=== PATIENT | male | born 1945 | race Caucasian/White ===

== ENCOUNTER 2017-05-31 10:27 | Inpatient (IN) | payer MEDICARE, MEDICAID ==
[~2017-05-31] VITALS: Ht 180.3 cm; Wt 88.4 kg
[~2017-05-31 10:27] MED LIST: AMLO5TAB2 PO; ASPI81CH43; BENA40TA7 PO; CITA-36 PO; GLIP1TAB38 PO; METF-372 PO; RANI150C11 PO; SIMV-8; TRAZ50TA2 PO
[2017-05-31 11:12] LABS: Basophils # (auto) 0 uL; Basophils % (auto) 0.5 % (0.0-2.0); Eosinophils # (auto) 0.2 uL; Eosinophils % (auto) 2.5 % (0.0-7.0); Hematocrit 35.6 % (41.0-53.0); Hemoglobin 11.5 g/dL (13.5-17.5); Lymphocytes # (auto) 0.7 uL; Lymphocytes % (auto) 10.4 % (10.0-50.0); Mean Corpuscular Hemoglobin 28.8 pg (28.0-32.0); Mean Corpuscular Hgb Conc. 32.4 g/dL (32.0-36.0); Mean Corpuscular Volume 88.9 fL (80.0-100.0); Mean Platelet Volume 6.9 fL (6.9-10.8); Monocytes # (auto) 0.5 uL; Monocytes % (auto) 6.7 % (0.0-12.0); Neutrophils # (auto) 5.7 uL; Neutrophils % (auto) 79.9 % (37.0-80.0); Nucleated Red Blood Cells % 0.2 %; Platelet Count (auto) 136 10^3/uL (140-450); Red Cell Distribution Width 17.9 % (11.8-14.3); White Blood Cell 7.2 10^3/uL (4.4-10.8)
[2017-05-31 11:35] LABS: Albumin 3.8 g/dL (3.4-5.0); Alkaline Phosphatase 103 U/L (45-117); Anion Gap 5 (5-15); Aspartate Aminotransferase 18 U/L (15-37); BUN/Creatinine Ratio 27.4; Bilirubin, Total 0.9 mg/dL (0.2-1.0); Blood Urea Nitrogen 29 mg/dL (7-18); Calcium 7.9 mg/dL (8.5-10.1); Carbon Dioxide 33 mmol/L (21-32); Chloride 102 mmol/L (98-107); GFR African American 89 mL/min; GFR Non-African American 73 mL/min; Glucose 179 mg/dL (74-106); Magnesium 2.6 mg/dL (1.6-2.6); Potassium 4.5 mmol/L (3.5-5.1); Sodium 140 mmol/L (136-145); Total Protein 7.5 g/dL (6.4-8.2)
[2017-05-31] MEDS ORDERED: FUROSEMIDE 40 MG/4 ML VIAL IV ONE (12:45)
[2017-05-31] MEDS ORDERED: MORPHINE SULF INJ 2 MG/ML SYRINGE 1ML IV PRN ×2 (14:45)
[2017-05-31] MEDS ORDERED: ONDANSETRON HCL 4 MG/2 ML VIAL IV PRN (14:45)
[2017-05-31] MEDS ORDERED: DOCUSATE SOD 100 MG CAP PO PRN (14:45)
[2017-05-31] MEDS ORDERED: NITROGLYCERIN 0.4 MG SL TAB SL PRN (14:45)
[2017-05-31] MEDS ORDERED: ACETAMINOPHEN 325 MG TAB PO PRN (14:45)
[2017-05-31] MEDS ORDERED: TEMAZEPAM 15 MG CAP PO PRN (14:45)
[2017-05-31] MEDS ORDERED: POTASSIUM CHL 10 Meq TABLET PO ONE (14:45)
[2017-05-31] MEDS ORDERED: DEXTROSE (50%) 50ML SYRG IV PRN (15:00)
[2017-05-31 16:08] LABS: INR 1.97 (0.9-1.15); Partial Thromboplastin Time 29.5 sec (22.64-33.71); Prothrombin Time 21.6 sec (9.37-12.3)
[2017-05-31 16:17] LABS: B-Type Natriuretic Peptide 242.85 pg/mL (0-100)
[2017-05-31] MEDS ORDERED: WARFARIN SODIUM 5 MG TAB PO ONE (17:00)
[2017-05-31 17:04] LABS: Temperature: 23.1 C (20.0-25.0)
[2017-05-31] MEDS: InsuLIN REG 1unit/0.01ml Soln (100units/ml) SC SCH ×2 (17:19→21:40)
[2017-05-31] MEDS: ACCU-CHEK COMFORT CURVE STRIP VI SCH ×2 (17:19→21:39)
[2017-05-31] MEDS: FUROSEMIDE 40 MG/4 ML VIAL IV SCH (17:19)
[2017-05-31] MEDS: ALBUTEROL SULF 2.5 MG/0.5ML(0.5%) NEB SOLN NEB SCH (18:22)
[2017-05-31] MEDS: glipiZIDE 5 MG TAB PO SCH (18:30)
[2017-05-31] MEDS: SODIUM CHLOR 0.9% PF (SALINE LOCK) 10ML VIAL IV SCH (21:49)
[2017-05-31] MEDS: BENAZEPRIL HCL 10 MG TAB PO SCH (21:52)
[2017-05-31] MEDS: ATORVASTATIN 20 MG TAB PO SCH (21:52)
[2017-05-31] MEDS: POTASSIUM CHL 10 Meq TABLET PO SCH (21:52)
[2017-05-31] MEDS: traZODone HCL 50 MG TAB PO SCH (21:52)
[2017-05-31 23:00] VITALS: BP 130/87
[2017-06-01] VITALS (12 sets, daily range): BP systolic 114–132; BP diastolic 69–102
[2017-06-01] MEDS: ALBUTEROL SULF 2.5 MG/0.5ML(0.5%) NEB SOLN NEB SCH ×4 (00:50→18:52)
[2017-06-01 03:31] LABS: Urine Bilirubin Negative (Negative); Urine Blood Negative /uL (Negative); Urine Color Yellow (Yellow); Urine Glucose Normal (Normal); Urine Ketone Negative (Negative); Urine Nitrite Negative (Negative); Urine RBC <1 /hpf (0 - 3); Urine Squamous Epithelial Cell FEW /hpf (<5); Urine pH 7.5 (5.0-8.0)
[2017-06-01 05:49] LABS: Basophils # (auto) 0.1 uL; Basophils % (auto) 0.7 % (0.0-2.0); Eosinophils # (auto) 0.2 uL; Eosinophils % (auto) 2.7 % (0.0-7.0); Hematocrit 33.7 % (41.0-53.0); Hemoglobin 11.1 g/dL (13.5-17.5); Lymphocytes # (auto) 0.7 uL; Lymphocytes % (auto) 7.9 % (10.0-50.0); Mean Corpuscular Hemoglobin 28.8 pg (28.0-32.0); Mean Corpuscular Volume 87.2 fL (80.0-100.0); Mean Platelet Volume 6.9 fL (6.9-10.8); Monocytes # (auto) 0.7 uL; Monocytes % (auto) 7.4 % (0.0-12.0); Neutrophils # (auto) 7.2 uL; Neutrophils % (auto) 81.3 % (37.0-80.0); Nucleated Red Blood Cells % 0.2 %; Platelet Count (auto) 129 10^3/uL (140-450); Red Cell Distribution Width 17.5 % (11.8-14.3); White Blood Cell 8.8 10^3/uL (4.4-10.8)
[2017-06-01 06:03] LABS: INR 1.95 (0.9-1.15); Partial Thromboplastin Time 32.5 sec (22.64-33.71); Prothrombin Time 21.4 sec (9.37-12.3)
[2017-06-01] MEDS: InsuLIN REG 1unit/0.01ml Soln (100units/ml) SC SCH ×4 (06:20→22:00)
[2017-06-01] MEDS: ACCU-CHEK COMFORT CURVE STRIP VI SCH ×4 (06:20→22:42)
[2017-06-01 06:23] LABS: Chloride 100 mmol/L (98-107); Glucose 58 mg/dL (74-106); Potassium 3.9 mmol/L (3.5-5.1); Sodium 140 mmol/L (136-145)
[2017-06-01] MEDS: SODIUM CHLOR 0.9% PF (SALINE LOCK) 10ML VIAL IV SCH ×3 (06:24→22:40)
[2017-06-01] MEDS: glipiZIDE 5 MG TAB PO SCH ×2 (06:30→18:00)
[2017-06-01] MEDS: FUROSEMIDE 40 MG/4 ML VIAL IV SCH ×2 (06:30→18:37)
[2017-06-01 06:32] LABS: Albumin 3.5 g/dL (3.4-5.0); Anion Gap 8 (5-15); Aspartate Aminotransferase 15 U/L (15-37); BUN/Creatinine Ratio 26.7; Blood Urea Nitrogen 23 mg/dL (7-18); Carbon Dioxide 32 mmol/L (21-32); GFR African American 113 mL/min; GFR Non-African American 93 mL/min
[2017-06-01 06:37] LABS: Alkaline Phosphatase 92 U/L (45-117); Bilirubin, Total 1.3 mg/dL (0.2-1.0); Total Protein 7.1 g/dL (6.4-8.2)
[2017-06-01] MEDS: amLODIPine BESYLATE 5 MG TAB PO SCH (10:07)
[2017-06-01] MEDS: CITALOPRAM HYDROBR 20 MG TAB PO SCH (10:07)
[2017-06-01] MEDS: ASPirin-EC 81 mg tab PO SCH (10:08)
[2017-06-01] MEDS: MULTIPLE VITAMIN TAB PO SCH (10:08)
[2017-06-01] MEDS: BENAZEPRIL HCL 10 MG TAB PO SCH ×2 (10:08→22:41)
[2017-06-01] MEDS: POTASSIUM CHL 10 Meq TABLET PO SCH ×2 (10:09→22:40)
[2017-06-01] MEDS: INSULIN NPH Isophane (HUMAN) 1unit/0.01ml Susp(100units/ml) SC SCH (10:09)
[2017-06-01] MEDS ORDERED: WARFARIN SODIUM 5 MG TAB PO ONE (17:00)
[2017-06-01] MEDS: ATORVASTATIN 20 MG TAB PO SCH (22:40)
[2017-06-01] MEDS: traZODone HCL 50 MG TAB PO SCH (22:40)
[2017-06-02] VITALS (7 sets, daily range): BP systolic 116–129; BP diastolic 63–79
[2017-06-02] MEDS: FUROSEMIDE 40 MG/4 ML VIAL IV SCH ×2 (05:56→18:12)
[2017-06-02] MEDS: SODIUM CHLOR 0.9% PF (SALINE LOCK) 10ML VIAL IV SCH ×3 (05:57→21:19)
[2017-06-02] MEDS: ACCU-CHEK COMFORT CURVE STRIP VI SCH ×4 (06:08→21:20)
[2017-06-02] MEDS: glipiZIDE 5 MG TAB PO SCH ×2 (06:08→18:12)
[2017-06-02] MEDS: InsuLIN REG 1unit/0.01ml Soln (100units/ml) SC SCH ×3 (06:08→17:38)
[2017-06-02 06:11] LABS: Basophils # (auto) 0 uL; Basophils % (auto) 0.7 % (0.0-2.0); Eosinophils # (auto) 0.2 uL; Eosinophils % (auto) 3.5 % (0.0-7.0); Hematocrit 33.3 % (41.0-53.0); Hemoglobin 11.1 g/dL (13.5-17.5); Lymphocytes # (auto) 0.7 uL; Mean Corpuscular Hemoglobin 28.9 pg (28.0-32.0); Mean Corpuscular Hgb Conc. 33.4 g/dL (32.0-36.0); Mean Corpuscular Volume 86.6 fL (80.0-100.0); Mean Platelet Volume 6.7 fL (6.9-10.8); Monocytes # (auto) 0.5 uL; Monocytes % (auto) 7.9 % (0.0-12.0); Neutrophils # (auto) 5.3 uL; Neutrophils % (auto) 77.9 % (37.0-80.0); Nucleated Red Blood Cells % 0.1 %; Platelet Count (auto) 131 10^3/uL (140-450); Red Cell Distribution Width 17.5 % (11.8-14.3); White Blood Cell 6.8 10^3/uL (4.4-10.8)
[2017-06-02 06:24] LABS: INR 1.7 (0.9-1.15); Partial Thromboplastin Time 32.2 sec (22.64-33.71); Prothrombin Time 18.6 sec (9.37-12.3)
[2017-06-02 06:38] LABS: Albumin 3.2 g/dL (3.4-5.0); BUN/Creatinine Ratio 26.9; Calcium 8.1 mg/dL (8.5-10.1); Potassium 3.7 mmol/L (3.5-5.1)
[2017-06-02 06:41] LABS: Bilirubin, Total 1.5 mg/dL (0.2-1.0); Total Protein 6.7 g/dL (6.4-8.2)
[2017-06-02] MEDS: ALBUTEROL SULF 2.5 MG/0.5ML(0.5%) NEB SOLN NEB SCH ×5 (06:50→23:09)
[2017-06-02] MEDS: amLODIPine BESYLATE 5 MG TAB PO SCH (10:02)
[2017-06-02] MEDS: CITALOPRAM HYDROBR 20 MG TAB PO SCH (10:02)
[2017-06-02] MEDS: ASPirin-EC 81 mg tab PO SCH (10:02)
[2017-06-02] MEDS: POTASSIUM CHL 10 Meq TABLET PO SCH ×2 (10:02→21:19)
[2017-06-02] MEDS: MULTIPLE VITAMIN TAB PO SCH (10:02)
[2017-06-02] MEDS: BENAZEPRIL HCL 10 MG TAB PO SCH ×2 (10:03→21:19)
[2017-06-02] MEDS: INSULIN NPH Isophane (HUMAN) 1unit/0.01ml Susp(100units/ml) SC SCH (10:04)
[2017-06-02] MEDS ORDERED: WARFARIN SODIUM 5 MG TAB PO ONE (17:00)
[2017-06-02] MEDS: traZODone HCL 50 MG TAB PO SCH (21:19)
[2017-06-02] MEDS: ATORVASTATIN 20 MG TAB PO SCH (21:19)
[2017-06-03] MEDS: InsuLIN REG 1unit/0.01ml Soln (100units/ml) SC SCH ×4 (02:23→17:00)
[2017-06-03 04:52] VITALS: BP 128/63
[2017-06-03] MEDS: ACCU-CHEK COMFORT CURVE STRIP VI SCH ×4 (05:44→21:36)
[2017-06-03] MEDS: SODIUM CHLOR 0.9% PF (SALINE LOCK) 10ML VIAL IV SCH ×3 (06:02→21:36)
[2017-06-03] MEDS: FUROSEMIDE 40 MG/4 ML VIAL IV SCH ×2 (06:03→17:35)
[2017-06-03 06:42] LABS: INR 1.39 (0.9-1.15); Partial Thromboplastin Time 29.6 sec (22.64-33.71); Prothrombin Time 15.2 sec (9.37-12.3)
[2017-06-03 07:02] LABS: Albumin 3.4 g/dL (3.4-5.0); BUN/Creatinine Ratio 30.8; Bilirubin, Total 1.3 mg/dL (0.2-1.0); Calcium 8.7 mg/dL (8.5-10.1); Potassium 3.9 mmol/L (3.5-5.1)
[2017-06-03] MEDS: ALBUTEROL SULF 2.5 MG/0.5ML(0.5%) NEB SOLN NEB SCH ×3 (07:15→19:46)
[2017-06-03] MEDS: glipiZIDE 5 MG TAB PO SCH ×2 (07:33→17:35)
[2017-06-03 09:00] VITALS: BP 122/93
[2017-06-03] MEDS: MULTIPLE VITAMIN TAB PO SCH (09:43)
[2017-06-03] MEDS: CITALOPRAM HYDROBR 20 MG TAB PO SCH (09:43)
[2017-06-03] MEDS: ASPirin-EC 81 mg tab PO SCH (09:43)
[2017-06-03] MEDS: POTASSIUM CHL 20 Meq TABLET PO SCH ×2 (09:43→21:34)
[2017-06-03] MEDS: METOLAZONE 5 MG TAB PO SCH (09:44)
[2017-06-03] MEDS: INSULIN NPH Isophane (HUMAN) 1unit/0.01ml Susp(100units/ml) SC SCH (09:45)
[2017-06-03] MEDS: amLODIPine BESYLATE 5 MG TAB PO SCH (09:46)
[2017-06-03] MEDS: BENAZEPRIL HCL 10 MG TAB PO SCH ×2 (09:46→21:35)
[2017-06-03] MEDS ORDERED: IOHEXOL 350 MG/ML 100ML IJ ONE (11:33)
[2017-06-03 13:00] VITALS: BP 136/82
[2017-06-03] MEDS ORDERED: ENOXAPARIN SOD 40 MG/0.4 ML SYRINGE SC ONE (13:15)
[2017-06-03] MEDS ORDERED: ATOR20TA50 PO (14:54)
[2017-06-03] MEDS ORDERED: POTA20TA53 PO (14:54)
[2017-06-03] MEDS ORDERED: FURO40TA4 PO (14:54)
[2017-06-03] MEDS ORDERED: WARF5TAB71 PO (14:54)
[2017-06-03] MEDS ORDERED: CARVEDILOL 3.125 MG TAB PO ONE (15:00)
[2017-06-03] MEDS ORDERED: WARFARIN SODIUM 2.5 MG TAB PO ONE (17:00)
[2017-06-03 17:15] VITALS: BP 147/88
[2017-06-03] MEDS: ATORVASTATIN 20 MG TAB PO SCH (21:34)
[2017-06-03] MEDS: HYDROcodone-ACET 5/325MG TAB PO PRN (21:35)
[2017-06-03] MEDS: CARVEDILOL 3.125 MG TAB PO SCH (21:36)
[2017-06-03] MEDS: traZODone HCL 50 MG TAB PO SCH (21:36)
[2017-06-03 22:00] VITALS: BP 114/80
[2017-06-03] MEDS ORDERED: CARVEDILOL 3.125 MG TAB PO SCH (22:00)
[2017-06-04] MEDS: InsuLIN REG 1unit/0.01ml Soln (100units/ml) SC SCH ×3 (00:11→11:30)
[2017-06-04] MEDS: ALBUTEROL SULF 2.5 MG/0.5ML(0.5%) NEB SOLN NEB SCH ×3 (00:33→12:00)
[2017-06-04 05:53] VITALS: BP 114/60
[2017-06-04] MEDS: FUROSEMIDE 40 MG/4 ML VIAL IV SCH ×2 (06:00→06:30)
[2017-06-04 06:19] LABS: INR 1.41 (0.9-1.15); Partial Thromboplastin Time 31.5 sec (22.64-33.71); Prothrombin Time 15.4 sec (9.37-12.3)
[2017-06-04 06:20] LABS: BUN/Creatinine Ratio 32.1; Calcium 8.5 mg/dL (8.5-10.1); Potassium 3.9 mmol/L (3.5-5.1)
[2017-06-04] MEDS: glipiZIDE 5 MG TAB PO SCH (06:29)
[2017-06-04] MEDS: HYDROcodone-ACET 5/325MG TAB PO PRN (06:29)
[2017-06-04] MEDS: ACCU-CHEK COMFORT CURVE STRIP VI SCH ×2 (06:30→11:30)
[2017-06-04] MEDS: SODIUM CHLOR 0.9% PF (SALINE LOCK) 10ML VIAL IV SCH (06:30)
[2017-06-04] MEDS: ASPirin-EC 81 mg tab PO SCH (06:38)
[2017-06-04 08:00] VITALS: BP 94/73
[2017-06-04 09:59] VITALS: BP 111/55
[2017-06-04] MEDS: CARVEDILOL 3.125 MG TAB PO SCH (10:00)
[2017-06-04] MEDS: BENAZEPRIL HCL 10 MG TAB PO SCH (10:00)
[2017-06-04] MEDS ORDERED: ENOXAPARIN SOD 40 MG/0.4 ML SYRINGE SC SCH (10:00)
[2017-06-04] MEDS: METOLAZONE 5 MG TAB PO SCH (10:00)
[2017-06-04] MEDS ORDERED: POTASSIUM CHL 20 Meq TABLET PO ONE (10:30)
[2017-06-04] MEDS: MULTIPLE VITAMIN TAB PO SCH (10:42)
[2017-06-04] MEDS: CITALOPRAM HYDROBR 20 MG TAB PO SCH (10:43)
[2017-06-04] MEDS: POTASSIUM CHL 20 Meq TABLET PO SCH (10:43)
[2017-06-04] MEDS: INSULIN NPH Isophane (HUMAN) 1unit/0.01ml Susp(100units/ml) SC SCH (10:50)
[2017-06-04] MEDS ORDERED: WARFARIN SODIUM 2.5 MG TAB PO ONE (17:00)
== END 2017-06-04 12:17 | DRG 291 ==
LOC: EDBD 10:27 → ER 10:27 → TELE 10:28 → TELE-CENTR 19:47
PROVIDERS: ADMIT Internal Medicine; ATTEND Internal Medicine
PROC: 5A09457 Assistance with Respiratory Ventilation, 24-96 Consecutive Hours, Continuous Positive Airway Pressure (ICD-10-PCS; principal; 2017-05-31)
PROC: 30233L1 Transfusion of Nonautologous Fresh Plasma into Peripheral Vein, Percutaneous Approach (ICD-10-PCS; 2017-06-01)
PROC: 30233K1 Transfusion of Nonautologous Frozen Plasma into Peripheral Vein, Percutaneous Approach (ICD-10-PCS; 2017-06-01)
PROC: 0W9B3ZZ Drainage of Left Pleural Cavity, Percutaneous Approach (ICD-10-PCS; 2017-06-01)
PROC: 5A09357 Assistance with Respiratory Ventilation, Less than 24 Consecutive Hours, Continuous Positive Airway Pressure (ICD-10-PCS; 2017-06-03)
DX: I13.0 Hypertensive heart and chronic kidney disease with heart failure and stage 1 through stage 4 chronic kidney disease, or unspecified chronic kidney disease (principal); I50.43 Acute on chronic combined systolic (congestive) and diastolic (congestive) heart failure; J96.21 Acute and chronic respiratory failure with hypoxia; E10.21 Type 1 diabetes mellitus with diabetic nephropathy; J90 Pleural effusion, not elsewhere classified; D68.9 Coagulation defect, unspecified; E10.22 Type 1 diabetes mellitus with diabetic chronic kidney disease; I48.1 Persistent atrial fibrillation; I48.92 Unspecified atrial flutter; I25.5 Ischemic cardiomyopathy; I25.10 Atherosclerotic heart disease of native coronary artery without angina pectoris; N18.2 Chronic kidney disease, stage 2 (mild); D63.8 Anemia in other chronic diseases classified elsewhere; E78.5 Hyperlipidemia, unspecified; I48.2 Chronic atrial fibrillation; J44.9 Chronic obstructive pulmonary disease, unspecified; T45.515A Adverse effect of anticoagulants, initial encounter; Y92.89 Other specified places as the place of occurrence of the external cause; Z79.01 Long term (current) use of anticoagulants; Z82.3 Family history of stroke; Z95.1 Presence of aortocoronary bypass graft; Z99.81 Dependence on supplemental oxygen; Z80.8 Family history of malignant neoplasm of other organs or systems
CPT/HCPCS: 36415; 71010; 71275; 76604; 76942; 80048; 80053; 81001; 82962; 83036; 83735; 83880; 84443; 84484; 85025; 85379; 85610; 85730; 86850; 86900; 86901; 87086; 93005; 93306; 94640; 94660; 94761; 96374; 96375; 97163; J1815; J2405

== ENCOUNTER 2018-03-31 13:43 | Inpatient (IN) | payer MEDICARE, MEDICAID ==
[~2018-03-31] VITALS: Ht 180.3 cm; Wt 88.1 kg
[~2018-03-31 13:43] MED LIST changes: +AMLO5TAB13 PO; -AMLO5TAB2 PO; +ATOR20TA50 PO; +FURO40TA4 PO; +POTA20TA53 PO; -TRAZ50TA2 PO; +WARF5TAB71 PO
[2018-03-31 15:04] LABS: Basophils # (auto) 0 uL; Basophils % (auto) 0.8 % (0.0-2.0); Eosinophils # (auto) 0.1 uL; Eosinophils % (auto) 1.3 % (0.0-7.0); Hematocrit 42.6 % (41.0-53.0); Hemoglobin 14.3 g/dL (13.5-17.5); Lymphocytes # (auto) 0.7 uL; Lymphocytes % (auto) 10.2 % (10.0-50.0); Mean Corpuscular Hemoglobin 29.5 pg (28.0-32.0); Mean Corpuscular Hgb Conc. 33.7 g/dL (32.0-36.0); Mean Corpuscular Volume 87.8 fL (80.0-100.0); Monocytes # (auto) 0.4 uL; Monocytes % (auto) 5.8 % (0.0-12.0); Neutrophils # (auto) 5.3 uL; Neutrophils % (auto) 81.9 % (37.0-80.0); Platelet Count (auto) 214 10^3/uL (140-450); Red Blood Cells 4.86 10^6/uL (4.5-5.90); Red Cell Distribution Width 15.3 % (11.8-14.3); White Blood Cell 6.5 10^3/uL (4.4-10.8)
[2018-03-31 15:17] LABS: Albumin 3.3 g/dL (3.4-5.0); BUN/Creatinine Ratio 17.7; Calcium 7.9 mg/dL (8.5-10.1); Magnesium 1.7 mg/dL (1.6-2.6)
[2018-03-31 15:22] LABS: Bilirubin, Total 1.3 mg/dL (0.2-1.0)
[2018-03-31] MEDS ORDERED: InsuLIN REG 1unit/0.01ml Soln (100units/ml) IV ONE (15:45)
[2018-03-31] MEDS ORDERED: SODIUM CHLORIDE 0.9% 500 ML IV ONE (15:45)
[2018-03-31] MEDS ORDERED: NITROGLYCERIN 0.4 MG SL TAB SL PRN (16:00)
[2018-03-31] MEDS ORDERED: DEXTROSE (50%) 50ML SYRG IV PRN (16:00)
[2018-03-31] MEDS ORDERED: ALBUTEROL SULF 2.5 MG/0.5ML(0.5%) NEB SOLN NEB PRN (16:00)
[2018-03-31] MEDS ORDERED: LORazepam 0.5 MG TAB PO PRN (16:00)
[2018-03-31] MEDS ORDERED: LACTULOSE 20Gm/30ML SOLN PO PRN (16:00)
[2018-03-31] MEDS ORDERED: MORPHINE SULFATE 4 MG/ML SYR/VIAL IV PRN ×2 (16:00)
[2018-03-31] MEDS ORDERED: ACETAMINOPHEN 500 MG TAB PO PRN (16:00)
[2018-03-31] MEDS ORDERED: ONDANSETRON HCL 4 MG/2 ML VIAL IV PRN (16:00)
[2018-03-31] MEDS: InsuLIN REG 1unit/0.01ml Soln (100units/ml) SC SCH ×3 (16:00→20:27)
[2018-03-31 16:05] LABS: Urine Bacteria NONE SEEN /hpf (None Seen); Urine Blood Negative /uL (Negative); Urine Specific Gravity 1.041 (1.001-1.035); Urine WBC <1 /hpf (0 - 3)
[2018-03-31] MEDS: ACCU-CHEK COMFORT CURVE STRIP VI SCH ×2 (16:19→20:27)
[2018-03-31 16:20] VITALS: BP 187/103
[2018-03-31] MEDS: DOXYCYCLINE 100MG/250ML 250 ML IV SCH (16:20)
[2018-03-31 16:32] LABS: Alcohol, Urine < 3.0 mg/dL (0-5); Amphetamine Screen, Urine POSITIVE (NEGATIVE); Barbiturate Scree,Urine NEGATIVE (NEGATIVE); Benzodiazephine Screen, Urine NEGATIVE (NEGATIVE); Cannabinoid Screen, Urine POSITIVE (NEGATIVE); Cocaine Screen, Urine NEGATIVE (NEGATIVE); Opiate Scree,Urine NEGATIVE (NEGATIVE); Phencyclidine Screen, Urine NEGATIVE (NEGATIVE)
[2018-03-31] MEDS: NITROGLYCERIN 0.2MG/HR TOPICAL PATCH TD SCH (16:36)
[2018-03-31 16:59] LABS: INR 1.01 (0.9-1.15); Prothrombin Time 10.8 sec (9.27-12.13)
[2018-03-31] MEDS ORDERED: FUROSEMIDE 40 MG/4 ML VIAL IV ONE (17:45)
[2018-03-31] MEDS ORDERED: WARFARIN SODIUM 5 MG TAB PO ONE (18:00)
[2018-03-31] MEDS ORDERED: FUROSEMIDE 40 MG/4 ML VIAL IV SCH (18:00)
[2018-03-31] MEDS: glipiZIDE 5 MG TAB PO SCH (18:12)
[2018-03-31] MEDS: IPRATROPIUM BROM 0.5 MG/2.5ML INH SOL NEB SCH (18:22)
[2018-03-31] MEDS: HYDROcodone-ACET 5/325MG TAB PO PRN (18:23)
[2018-03-31] MEDS: ALBUTEROL SULF 2.5 MG/0.5ML(0.5%) NEB SOLN NEB SCH (18:23)
[2018-03-31] MEDS ORDERED: IOHEXOL 350 MG/ML 100ML IJ ONE (18:24)
[2018-03-31 20:00] VITALS: BP 138/99
[2018-03-31 21:31] VITALS: BP 140/107
[2018-03-31] MEDS: POTASSIUM CHL 20 Meq TABLET PO SCH (21:47)
[2018-03-31] MEDS: CARVEDILOL 3.125 MG TAB PO SCH (21:48)
[2018-03-31] MEDS: CITALOPRAM HYDROBR 20 MG TAB PO SCH (21:48)
[2018-03-31] MEDS ORDERED: ATORVASTATIN 20 MG TAB PO SCH (22:00)
[2018-03-31] MEDS ORDERED: PATIENTS OWN MEDICATION (Atorvastatin Calcium 20 MG) PO SCH (22:00)
[2018-03-31] MEDS ORDERED: CITALOPRAM HYDROBR 20 MG TAB PO SCH (22:00)
[2018-03-31] MEDS ORDERED: PATIENTS OWN MEDICATION (Citalopram Hydrobromide (Celexa) 1 TAB) PO SCH (22:00)
[2018-04-01] MEDS: ACCU-CHEK COMFORT CURVE STRIP VI SCH ×6 (00:08→20:18)
[2018-04-01] MEDS: InsuLIN REG 1unit/0.01ml Soln (100units/ml) SC SCH ×5 (00:08→20:18)
[2018-04-01] MEDS: ALBUTEROL SULF 2.5 MG/0.5ML(0.5%) NEB SOLN NEB SCH ×4 (00:18→18:58)
[2018-04-01] MEDS: IPRATROPIUM BROM 0.5 MG/2.5ML INH SOL NEB SCH ×4 (00:18→18:58)
[2018-04-01] MEDS: TEMAZEPAM 15 MG CAP PO PRN (01:03)
[2018-04-01] MEDS: HYDROcodone-ACET 5/325MG TAB PO PRN ×2 (01:03→16:47)
[2018-04-01] MEDS: DOXYCYCLINE 100MG/250ML 250 ML IV SCH ×2 (04:14→15:30)
[2018-04-01 05:07] VITALS: BP 146/64
[2018-04-01] MEDS: FUROSEMIDE 40 MG/4 ML VIAL IV SCH ×2 (05:54→17:31)
[2018-04-01 06:05] LABS: INR 1.06 (0.9-1.15); Prothrombin Time 11.3 sec (9.27-12.13)
[2018-04-01 06:09] LABS: Cholesterol 114 mg/dL (< 200)
[2018-04-01 06:12] LABS: HDL Cholesterol 48 mg/dL (40-59); LDL Cholesterol 64 mg/dL (< 100); Triglycerides 42 mg/dL (< 150)
[2018-04-01] MEDS: glipiZIDE 5 MG TAB PO SCH ×2 (06:45→17:30)
[2018-04-01 09:00] VITALS: BP 122/79
[2018-04-01] MEDS: CARVEDILOL 3.125 MG TAB PO SCH ×2 (09:07→22:20)
[2018-04-01] MEDS: POTASSIUM CHL 20 Meq TABLET PO SCH ×2 (09:08→22:20)
[2018-04-01] MEDS: amLODIPine BESYLATE 5 MG TAB PO SCH (09:08)
[2018-04-01] MEDS: BENAZEPRIL HCL 10 MG TAB PO SCH (09:08)
[2018-04-01] MEDS: PANTOPRAZOLE 40 MG TAB PO SCH (09:09)
[2018-04-01] MEDS: NITROGLYCERIN 0.2MG/HR TOPICAL PATCH TD SCH (09:10)
[2018-04-01] MEDS ORDERED: ASPirin 81 mg TAB PO SCH (10:00)
[2018-04-01] MEDS ORDERED: RANITIDINE HCL PO SCH (10:00)
[2018-04-01] MEDS ORDERED: PATIENTS OWN MEDICATION (Benazepril Hcl 1 TAB) PO SCH (10:00)
[2018-04-01 13:00] VITALS: BP 132/83
[2018-04-01] MEDS ORDERED: guaiFENesin-DM 100/10mg/5ml SYR PO PRN (15:30)
[2018-04-01 16:50] VITALS: BP 119/60
[2018-04-01] MEDS ORDERED: WARFARIN SODIUM 5 MG TAB PO ONE (17:00)
[2018-04-01 20:00] VITALS: BP 131/78
[2018-04-01 22:00] VITALS: BP 131/78
[2018-04-01] MEDS: CITALOPRAM HYDROBR 20 MG TAB PO SCH (22:19)
[2018-04-01] MEDS: ATORVASTATIN 20 MG TAB PO SCH (22:21)
[2018-04-02] MEDS: ALBUTEROL SULF 2.5 MG/0.5ML(0.5%) NEB SOLN NEB SCH ×5 (00:40→23:58)
[2018-04-02] MEDS: IPRATROPIUM BROM 0.5 MG/2.5ML INH SOL NEB SCH ×5 (00:40→23:58)
[2018-04-02] MEDS: ACCU-CHEK COMFORT CURVE STRIP VI SCH ×7 (00:50→23:59)
[2018-04-02] MEDS: InsuLIN REG 1unit/0.01ml Soln (100units/ml) SC SCH ×7 (04:00→23:59)
[2018-04-02] MEDS: DOXYCYCLINE 100MG/250ML 250 ML IV SCH ×2 (04:31→15:32)
[2018-04-02 05:00] VITALS: BP 114/72
[2018-04-02 06:02] LABS: INR 1.12 (0.9-1.15); Prothrombin Time 11.9 sec (9.27-12.13)
[2018-04-02] MEDS: FUROSEMIDE 40 MG/4 ML VIAL IV SCH ×2 (06:15→17:43)
[2018-04-02] MEDS: glipiZIDE 5 MG TAB PO SCH ×2 (06:35→17:43)
[2018-04-02 08:48] VITALS: BP 128/77
[2018-04-02] MEDS: ASPirin 81 mg TAB PO SCH (09:23)
[2018-04-02] MEDS: amLODIPine BESYLATE 5 MG TAB PO SCH (09:24)
[2018-04-02] MEDS: BENAZEPRIL HCL 10 MG TAB PO SCH (09:24)
[2018-04-02] MEDS: CARVEDILOL 3.125 MG TAB PO SCH ×2 (09:24→21:43)
[2018-04-02] MEDS: POTASSIUM CHL 20 Meq TABLET PO SCH ×2 (09:24→21:44)
[2018-04-02] MEDS: PANTOPRAZOLE 40 MG TAB PO SCH (09:24)
[2018-04-02] MEDS: NITROGLYCERIN 0.2MG/HR TOPICAL PATCH TD SCH (09:24)
[2018-04-02 13:00] VITALS: BP 112/70
[2018-04-02 17:00] VITALS: BP 107/65
[2018-04-02 20:00] VITALS: BP 116/79
[2018-04-02 20:57] VITALS: BP 116/79
[2018-04-02] MEDS: CITALOPRAM HYDROBR 20 MG TAB PO SCH (21:43)
[2018-04-02] MEDS: ATORVASTATIN 20 MG TAB PO SCH (21:44)
[2018-04-02] MEDS: HYDROcodone-ACET 5/325MG TAB PO PRN (21:50)
[2018-04-03] VITALS (8 sets, daily range): BP systolic 92–129; BP diastolic 60–85
[2018-04-03] MEDS: ACCU-CHEK COMFORT CURVE STRIP VI SCH ×5 (03:56→20:26)
[2018-04-03] MEDS: DOXYCYCLINE 100MG/250ML 250 ML IV SCH (03:56)
[2018-04-03] MEDS: InsuLIN REG 1unit/0.01ml Soln (100units/ml) SC SCH ×5 (03:56→20:26)
[2018-04-03] MEDS: ALBUTEROL SULF 2.5 MG/0.5ML(0.5%) NEB SOLN NEB SCH ×3 (05:57→18:48)
[2018-04-03] MEDS: IPRATROPIUM BROM 0.5 MG/2.5ML INH SOL NEB SCH ×3 (05:57→18:48)
[2018-04-03] MEDS: FUROSEMIDE 40 MG/4 ML VIAL IV SCH ×2 (06:21→17:57)
[2018-04-03] MEDS: glipiZIDE 5 MG TAB PO SCH ×2 (06:43→17:57)
[2018-04-03] MEDS ORDERED: IODIXANOL 320MG/ML 100ML BTL IV ONE ×2 (08:25→10:28)
[2018-04-03] MEDS ORDERED: HEPARIN IN NS 1000Units/500mL 0 ML ONE (08:25)
[2018-04-03] MEDS ORDERED: LIDOCAINE 2% (LOCAL ANESTH.) PF 5ml SDV ONE (08:25)
[2018-04-03] MEDS ORDERED: LIDOCAINE 2%HCL (LOCAL ANESTH.) INJ 10ml MDV ONE (09:04)
[2018-04-03] MEDS: POTASSIUM CHL 20 Meq TABLET PO SCH ×2 (10:00→21:54)
[2018-04-03] MEDS: NITROGLYCERIN 0.2MG/HR TOPICAL PATCH TD SCH (10:00)
[2018-04-03] MEDS ORDERED: ANGIOMAX 250 MG VIAL IV ONE (10:05)
[2018-04-03] MEDS ORDERED: fentaNYL CITRATE 100 MCG/2 ML VL ONE (10:05)
[2018-04-03] MEDS ORDERED: SODIUM CHL 0.9% 50 ML ONE (10:06)
[2018-04-03] MEDS ORDERED: MIDAZOLAM HCL 1MG/1ML-2 ML VIAL ONE (10:06)
[2018-04-03] MEDS ORDERED: TICAGRELOR 90 MG TAB ONE (10:36)
[2018-04-03] MEDS ORDERED: ASPirin 325 MG TAB ONE (10:36)
[2018-04-03] MEDS: ASPirin 81 mg TAB PO SCH (13:26)
[2018-04-03] MEDS: BENAZEPRIL HCL 10 MG TAB PO SCH (13:26)
[2018-04-03] MEDS: PANTOPRAZOLE 40 MG TAB PO SCH (13:26)
[2018-04-03] MEDS: CARVEDILOL 3.125 MG TAB PO SCH ×2 (13:27→21:54)
[2018-04-03] MEDS: amLODIPine BESYLATE 5 MG TAB PO SCH (13:27)
[2018-04-03] MEDS: HYDROcodone-ACET 5/325MG TAB PO PRN (13:32)
[2018-04-03 16:52] LABS: Basophils # (auto) 0 uL; Basophils % (auto) 0.5 % (0.0-2.0); Eosinophils # (auto) 0.1 uL; Eosinophils % (auto) 1.7 % (0.0-7.0); Hematocrit 38.2 % (41.0-53.0); Lymphocytes # (auto) 0.6 uL; Lymphocytes % (auto) 8.1 % (10.0-50.0); Mean Corpuscular Hemoglobin 30.1 pg (28.0-32.0); Mean Corpuscular Hgb Conc. 34.1 g/dL (32.0-36.0); Mean Corpuscular Volume 88.3 fL (80.0-100.0); Monocytes # (auto) 0.6 uL; Monocytes % (auto) 7.4 % (0.0-12.0); Neutrophils # (auto) 6.3 uL; Neutrophils % (auto) 82.3 % (37.0-80.0); Platelet Count (auto) 188 10^3/uL (140-450); Red Blood Cells 4.33 10^6/uL (4.5-5.90); Red Cell Distribution Width 15.8 % (11.8-14.3); White Blood Cell 7.7 10^3/uL (4.4-10.8)
[2018-04-03 17:06] LABS: Albumin 2.8 g/dL (3.4-5.0); Calcium 7.5 mg/dL (8.5-10.1)
[2018-04-03 17:10] LABS: BUN/Creatinine Ratio 23.6; Total Protein 6.2 g/dL (6.4-8.2)
[2018-04-03] MEDS ORDERED: CLOPIDOGREL 300 MG TAB PO ONE (20:00)
[2018-04-03] MEDS: AMOXICILLIN TRIHYDRATE 250 MG CAP PO SCH (21:53)
[2018-04-03] MEDS: CITALOPRAM HYDROBR 20 MG TAB PO SCH (21:53)
[2018-04-03] MEDS: ATORVASTATIN 20 MG TAB PO SCH (21:55)
[2018-04-04] VITALS (7 sets, daily range): BP systolic 110–135; BP diastolic 76–88
[2018-04-04] MEDS: IPRATROPIUM BROM 0.5 MG/2.5ML INH SOL NEB SCH ×4 (00:44→18:44)
[2018-04-04] MEDS: ALBUTEROL SULF 2.5 MG/0.5ML(0.5%) NEB SOLN NEB SCH ×4 (00:44→18:45)
[2018-04-04] MEDS: ACCU-CHEK COMFORT CURVE STRIP VI SCH ×6 (00:55→20:28)
[2018-04-04] MEDS: InsuLIN REG 1unit/0.01ml Soln (100units/ml) SC SCH ×6 (04:00→20:28)
[2018-04-04] MEDS: FUROSEMIDE 40 MG/4 ML VIAL IV SCH ×2 (06:31→18:13)
[2018-04-04] MEDS: AMOXICILLIN TRIHYDRATE 250 MG CAP PO SCH ×3 (06:31→22:33)
[2018-04-04] MEDS: glipiZIDE 5 MG TAB PO SCH ×2 (06:32→18:13)
[2018-04-04] MEDS: CARVEDILOL 3.125 MG TAB PO SCH ×2 (10:00→22:35)
[2018-04-04] MEDS: BENAZEPRIL HCL 10 MG TAB PO SCH (10:00)
[2018-04-04] MEDS: amLODIPine BESYLATE 5 MG TAB PO SCH (10:00)
[2018-04-04] MEDS: NITROGLYCERIN 0.2MG/HR TOPICAL PATCH TD SCH (10:00)
[2018-04-04] MEDS: PANTOPRAZOLE 40 MG TAB PO SCH (10:50)
[2018-04-04] MEDS: ASPirin 81 mg TAB PO SCH (10:50)
[2018-04-04] MEDS: CLOPIDOGREL BISULFATE 75 MG TAB PO SCH (10:50)
[2018-04-04] MEDS: POTASSIUM CHL 20 Meq TABLET PO SCH ×2 (10:51→22:35)
[2018-04-04] MEDS: HYDROcodone-ACET 5/325MG TAB PO PRN (15:21)
[2018-04-04] MEDS: CITALOPRAM HYDROBR 20 MG TAB PO SCH (22:34)
[2018-04-04] MEDS: ATORVASTATIN 20 MG TAB PO SCH (22:35)
[2018-04-04] MEDS: TEMAZEPAM 15 MG CAP PO PRN (22:36)
[2018-04-05] MEDS: IPRATROPIUM BROM 0.5 MG/2.5ML INH SOL NEB SCH ×3 (00:43→11:53)
[2018-04-05] MEDS: ALBUTEROL SULF 2.5 MG/0.5ML(0.5%) NEB SOLN NEB SCH ×3 (00:43→11:54)
[2018-04-05] MEDS: InsuLIN REG 1unit/0.01ml Soln (100units/ml) SC SCH ×4 (04:00→11:54)
[2018-04-05] MEDS: ACCU-CHEK COMFORT CURVE STRIP VI SCH ×4 (04:00→11:54)
[2018-04-05 04:42] VITALS: BP 125/82
[2018-04-05] MEDS: FUROSEMIDE 40 MG/4 ML VIAL IV SCH (06:12)
[2018-04-05] MEDS: AMOXICILLIN TRIHYDRATE 250 MG CAP PO SCH ×2 (06:13→14:43)
[2018-04-05] MEDS: glipiZIDE 5 MG TAB PO SCH (06:32)
[2018-04-05 08:00] VITALS: BP 125/82
[2018-04-05 08:21] VITALS: BP 125/80
[2018-04-05] MEDS: amLODIPine BESYLATE 5 MG TAB PO SCH (09:17)
[2018-04-05] MEDS: POTASSIUM CHL 20 Meq TABLET PO SCH (09:18)
[2018-04-05] MEDS: BENAZEPRIL HCL 10 MG TAB PO SCH (09:18)
[2018-04-05] MEDS: CLOPIDOGREL BISULFATE 75 MG TAB PO SCH (09:18)
[2018-04-05] MEDS: HYDROcodone-ACET 5/325MG TAB PO PRN (09:19)
[2018-04-05] MEDS: CARVEDILOL 3.125 MG TAB PO SCH (09:19)
[2018-04-05] MEDS: ASPirin 81 mg TAB PO SCH (09:20)
[2018-04-05] MEDS: PANTOPRAZOLE 40 MG TAB PO SCH (09:21)
[2018-04-05] MEDS: NITROGLYCERIN 0.2MG/HR TOPICAL PATCH TD SCH (10:00)
[2018-04-05 11:42] VITALS: BP 124/70
== END 2018-04-05 16:20 | DRG 248 ==
LOC: EDBD 13:43 → ER 13:43 → TELE 13:44 → TELE-EAST 19:32
PROVIDERS: ADMIT Internal Medicine; ATTEND Family Medicine
PROC: 5A09357 Assistance with Respiratory Ventilation, Less than 24 Consecutive Hours, Continuous Positive Airway Pressure (ICD-10-PCS; 2018-04-01)
PROC: 02703FZ Dilation of Coronary Artery, One Artery with Three Intraluminal Devices, Percutaneous Approach (ICD-10-PCS; principal; 2018-04-03)
PROC: 4A023N7 Measurement of Cardiac Sampling and Pressure, Left Heart, Percutaneous Approach (ICD-10-PCS; 2018-04-03)
PROC: B2111ZZ Fluoroscopy of Multiple Coronary Arteries using Low Osmolar Contrast (ICD-10-PCS; 2018-04-03)
PROC: B2181ZZ Fluoroscopy of Left Internal Mammary Bypass Graft using Low Osmolar Contrast (ICD-10-PCS; 2018-04-03)
PROC: B41F1ZZ Fluoroscopy of Right Lower Extremity Arteries using Low Osmolar Contrast (ICD-10-PCS; 2018-04-03)
DX: I25.10 Atherosclerotic heart disease of native coronary artery without angina pectoris (principal); I50.43 Acute on chronic combined systolic (congestive) and diastolic (congestive) heart failure; I48.92 Unspecified atrial flutter; I11.0 Hypertensive heart disease with heart failure; I48.91 Unspecified atrial fibrillation; J44.9 Chronic obstructive pulmonary disease, unspecified; F15.10 Other stimulant abuse, uncomplicated; F12.10 Cannabis abuse, uncomplicated; E11.65 Type 2 diabetes mellitus with hyperglycemia; E78.00 Pure hypercholesterolemia, unspecified; F32.9 Major depressive disorder, single episode, unspecified; H91.90 Unspecified hearing loss, unspecified ear; K59.00 Constipation, unspecified; Z79.02 Long term (current) use of antithrombotics/antiplatelets; Z79.82 Long term (current) use of aspirin; Z80.0 Family history of malignant neoplasm of digestive organs; Z82.3 Family history of stroke; Z82.49 Family history of ischemic heart disease and other diseases of the circulatory system; Z91.19 Patient's noncompliance with other medical treatment and regimen; Z95.1 Presence of aortocoronary bypass graft; Z88.2 Allergy status to sulfonamides; Z79.899 Other long term (current) drug therapy; Z81.1 Family history of alcohol abuse and dependence
CPT/HCPCS: 36415; 71046; 71275; 75710; 80053; 80061; 80307; 81001; 82550; 82962; 83036; 83735; 83880; 84443; 84484; 85025; 85379; 85610; 85652; 86141; 86850; 86900; 86901; 87070; 87205; 92928; 93005; 93306; 93459; 94640; 94660; 96361; 96374; 96375; 99152; A6257; C1874; C1887; J1815; J2001; J2250; J3490; Q9967